=== PATIENT | female | born 1935 | race Caucasian/White ===

== ENCOUNTER → 2017-09-07 | Outpatient (CLI) | payer MEDICARE ==
[~2017-09-07] MED LIST: ALBUPOW26; ARICEPT; AUGMENTIN; BUDESONIDE; DONE5TAB11 PO; DYAZIDE; ERGO1CAP23 PO; IPRATOPIUM; LEVO25TA9; LORAPOW30; PERFOROMIST; PLAVIX; QUE25T PO; TEGRETOL; TOPRO; [UNRECOGNIZED DRUG - OTHER]
[2017-09-07 08:23] LABS: Basophils # (auto) 0.1 uL; Eosinophils # (auto) 0.3 uL; Eosinophils % (auto) 4.9 % (0.0-7.0); Hematocrit 43.5 % (36.0-46.0); Hemoglobin 14.3 g/dL (12.2-16.2); Lymphocytes # (auto) 1.6 uL; Lymphocytes % (auto) 28.3 % (10.0-50.0); Mean Corpuscular Hemoglobin 29.8 pg (28.0-32.0); Mean Corpuscular Volume 90.5 fL (80.0-100.0); Monocytes # (auto) 0.4 uL; Monocytes % (auto) 7.9 % (0.0-12.0); Neutrophils # (auto) 3.2 uL; Neutrophils % (auto) 57.9 % (37.0-80.0); Platelet Count (auto) 227 10^3/uL (140-450); Red Blood Cells 4.81 10^6/uL (4.0-5.20); Red Cell Distribution Width 16.2 % (11.8-14.3); White Blood Cell 5.6 10^3/uL (4.4-10.8)
[2017-09-07 08:35] LABS: Urine Bacteria FEW /hpf (None Seen); Urine Blood Negative /uL (Negative); Urine Mucus FEW (None Seen); Urine Specific Gravity 1.013 (1.001-1.035); Urine WBC 185 /hpf (0 - 5); Urine WBC Clumps PRESENT /hpf (None Seen)
[2017-09-07 08:58] LABS: Free T4 (Free Thyroxine) 1.55 ng/dL (0.89-1.76)
[2017-09-07 09:03] LABS: Albumin 3.9 g/dL (3.4-5.0); BUN/Creatinine Ratio 12.9; Bilirubin, Total 0.5 mg/dL (0.2-1.0); Calcium 9.2 mg/dL (8.5-10.1); Total Protein 8.1 g/dL (6.4-8.2)
== END | disposition home or self-care (01) ==
LOC: LAB 07:34
PROVIDERS: ATTEND Internal Medicine
DX: I10 Essential (primary) hypertension (principal); E55.9 Vitamin D deficiency, unspecified; E03.9 Hypothyroidism, unspecified; E78.00 Pure hypercholesterolemia, unspecified
CPT/HCPCS: 36415; 80053; 80061; 81001; 82043; 82306; 82607; 84439; 84443; 85025; 85652

== ENCOUNTER → 2017-09-11 | Outpatient (CLI) | payer MEDICARE | END | disposition home or self-care (01) | LOC: LAB 12:40 | PROVIDERS: ATTEND Internal Medicine | DX: I12.9 Hypertensive chronic kidney disease with stage 1 through stage 4 chronic kidney disease, or unspecified chronic kidney disease (principal); N18.3 Chronic kidney disease, stage 3 (moderate); R35.0 Frequency of micturition | CPT/HCPCS: 87086; 87088; 87186 ==

== ENCOUNTER → 2019-04-08 | Outpatient (CLI) | payer MEDICARE ==
[2019-04-08 12:25] LABS: Basophils # (auto) 0 uL; Basophils % (auto) 0.6 % (0.0-2.0); Eosinophils # (auto) 0.1 uL; Hematocrit 44.3 % (36.0-46.0); Hemoglobin 14.7 g/dL (12.2-16.2); Lymphocytes # (auto) 1.2 uL; Lymphocytes % (auto) 16.9 % (10.0-50.0); Mean Corpuscular Hemoglobin 30.2 pg (28.0-32.0); Mean Corpuscular Hgb Conc. 33.3 g/dL (32.0-36.0); Mean Corpuscular Volume 90.7 fL (80.0-100.0); Monocytes # (auto) 0.5 uL; Monocytes % (auto) 6.8 % (0.0-12.0); Neutrophils # (auto) 5.3 uL; Neutrophils % (auto) 73.7 % (37.0-80.0); Platelet Count (auto) 237 10^3/uL (140-450); Red Blood Cells 4.88 10^6/uL (4.0-5.20); Red Cell Distribution Width 15.3 % (11.8-14.3); White Blood Cell 7.2 10^3/uL (4.4-10.8)
[2019-04-08 13:35] LABS: Albumin 3.9 g/dL (3.4-5.0); BUN/Creatinine Ratio 12.4; Calcium 9.6 mg/dL (8.5-10.1)
[2019-04-08 13:37] LABS: Bilirubin, Total 0.3 mg/dL (0.2-1.0); Total Protein 7.8 g/dL (6.4-8.2)
[2019-04-08 13:49] LABS: Free T4 (Free Thyroxine) 1.17 ng/dL (0.89-1.76)
== END | disposition home or self-care (01) ==
LOC: LAB 11:35
PROVIDERS: ATTEND Internal Medicine
DX: K80.20 Calculus of gallbladder without cholecystitis without obstruction (principal); F03.90 Unspecified dementia, unspecified severity, without behavioral disturbance, psychotic disturbance, mood disturbance, and anxiety; I10 Essential (primary) hypertension
CPT/HCPCS: 36415; 80053; 82150; 82607; 83690; 84439; 84443; 85025; 85652

== ENCOUNTER → 2020-09-30 | Outpatient (CLI) | payer MEDICARE | END | disposition home or self-care (01) | LOC: LAB 14:26 | PROVIDERS: ATTEND Internal Medicine | DX: R30.0 Dysuria (principal) | CPT/HCPCS: 87086 ==

== ENCOUNTER 2020-10-31 21:10 | Inpatient (IN) | payer MEDICARE ==
[~2020-10-31] VITALS: Ht 157.5 cm; Wt 57.5 kg
[2020-10-31] MEDS ORDERED: SODIUM CHLORIDE 0.9% 1,000 ML IV ONE (22:30)
[2020-10-31] MEDS ORDERED: ONDANSETRON HCL 4 MG/2 ML VIAL IV ONE (22:30)
[2020-10-31 22:46] LABS: Basophils # (auto) 0 10 ^3/uL (0-0.2); Basophils % (auto) 0.5 % (0.0-2.0); Eosinophils # (auto) 0.3 10 ^3/uL (0-0.8); Eosinophils % (auto) 3.5 % (0.0-7.0); Hematocrit 39.6 % (36.0-46.0); Hemoglobin 12.9 g/dL (12.2-16.2); Lymphocytes # (auto) 1.1 10 ^3/uL (0.4-5.4); Lymphocytes % (auto) 13.4 % (10.0-50.0); Mean Corpuscular Hemoglobin 29.5 pg (28.0-32.0); Mean Corpuscular Hgb Conc. 32.5 g/dL (32.0-36.0); Mean Corpuscular Volume 90.8 fL (80.0-100.0); Monocytes # (auto) 0.7 10 ^3/uL (0-1.3); Neutrophils # (auto) 5.9 10 ^3/uL (1.6-8.6); Neutrophils % (auto) 73.6 % (37.0-80.0); Nucleated Red Blood Cells % 0.1 %; Platelet Count (auto) 213 10^3/uL (140-450); Red Blood Cells 4.36 10^6/uL (4.0-5.20); Red Cell Distribution Width 15.6 % (11.8-14.3); White Blood Cell 8.1 10^3/uL (4.4-10.8)
[2020-10-31 23:02] LABS: Albumin 3.4 g/dL (3.4-5.0); Calcium 8.7 mg/dL (8.5-10.1)
[2020-10-31 23:05] LABS: BUN/Creatinine Ratio 21.1; Bilirubin, Total 0.5 mg/dL (0.2-1.0); Total Protein 7.8 g/dL (6.4-8.2)
[2020-10-31] MEDS ORDERED: LABETALOL HCL 5 MG/ML 4ML SYRINGE IV ONE (23:30)
[2020-10-31 23:37] LABS: INR 0.97 (0.9-1.15)
[2020-10-31 23:37] LABS: Urine Bacteria FEW /hpf (None Seen); Urine Blood Negative /uL (Negative); Urine Specific Gravity 1.009 (1.001-1.035); Urine WBC 29 /hpf (0 - 5)
[2020-11-01] MEDS ORDERED: SODIUM CHLORIDE 0.9% 1,000 ML IV SCH (05:15)
[2020-11-01] MEDS ORDERED: ONDANSETRON HCL 4 MG/2 ML VIAL IV PRN (05:15)
[2020-11-01] MEDS ORDERED: NITROGLYCERIN 0.4 MG SL TAB SL PRN (05:15)
[2020-11-01] MEDS ORDERED: ACETAMINOPHEN 325 MG TAB PO PRN (05:15)
[2020-11-01] MEDS: hydrALAZINE HCL 20 MG/ML VL IV PRN (06:09)
[2020-11-01] MEDS: hydrALAZINE HCL 25 MG TAB PO SCH ×3 (06:12→22:08)
[2020-11-01 06:45] LABS: Basophils # (auto) 0.1 10 ^3/uL (0-0.2); Basophils % (auto) 1.1 % (0.0-2.0); Eosinophils # (auto) 0.2 10 ^3/uL (0-0.8); Eosinophils % (auto) 3.4 % (0.0-7.0); Hematocrit 39.3 % (36.0-46.0); Hemoglobin 13.3 g/dL (12.2-16.2); Lymphocytes # (auto) 1.3 10 ^3/uL (0.4-5.4); Lymphocytes % (auto) 17.9 % (10.0-50.0); Mean Corpuscular Hemoglobin 30.1 pg (28.0-32.0); Mean Corpuscular Hgb Conc. 33.9 g/dL (32.0-36.0); Mean Corpuscular Volume 88.9 fL (80.0-100.0); Monocytes # (auto) 0.5 10 ^3/uL (0-1.3); Monocytes % (auto) 6.7 % (0.0-12.0); Neutrophils # (auto) 5.1 10 ^3/uL (1.6-8.6); Neutrophils % (auto) 70.9 % (37.0-80.0); Nucleated Red Blood Cells % 0.1 %; Platelet Count (auto) 233 10^3/uL (140-450); Red Blood Cells 4.42 10^6/uL (4.0-5.20); Red Cell Distribution Width 15.3 % (11.8-14.3); White Blood Cell 7.2 10^3/uL (4.4-10.8)
[2020-11-01 07:02] LABS: Albumin 3.2 g/dL (3.4-5.0); Calcium 8.3 mg/dL (8.5-10.1)
[2020-11-01 07:05] LABS: BUN/Creatinine Ratio 18.1; Bilirubin, Total 0.3 mg/dL (0.2-1.0); Total Protein 7.2 g/dL (6.4-8.2)
[2020-11-01 09:29] VITALS: BP 129/68
[2020-11-01] MEDS: LEVOTHYROXINE SODIUM 25 MCG TAB PO SCH (10:23)
[2020-11-01] MEDS: amLODIPine BESYLATE 5 MG TAB PO SCH (10:24)
[2020-11-01] MEDS: cefTRIAXone 1GM/50ML D5W 50 ML IV SCH (10:24)
[2020-11-01] MEDS: PANTOPRAZOLE 40 MG/10 ML VIAL INJ IV SCH (10:24)
[2020-11-01 10:40] VITALS: BP 124/68
[2020-11-01] MEDS ORDERED: LEVO88CA3 PO (11:08)
[2020-11-01] MEDS ORDERED: DOCU100T15 PO (11:14)
[2020-11-01] MEDS ORDERED: EZET10TA22 PO (11:14)
[2020-11-01] MEDS ORDERED: AMLO-489 PO (11:14)
[2020-11-01] MEDS ORDERED: ACET-1158 PO (11:14)
[2020-11-01] MEDS ORDERED: MEMA1TAB5 PO (11:14)
[2020-11-01] MEDS ORDERED: MULT-192 PO (11:14)
[2020-11-01] MEDS ORDERED: [UNRECOGNIZED DRUG - CODE] OR (11:14)
[2020-11-01] MEDS ORDERED: CLOP75TA70 PO (11:14)
[2020-11-01 13:00] VITALS: BP 141/81
[2020-11-01 16:34] VITALS: BP 136/79
[2020-11-01 22:00] VITALS: BP 133/81
[2020-11-01] MEDS: DONEPEZIL HYDROCHLORIDE 5 MG TAB PO SCH (22:07)
[2020-11-02 05:00] VITALS: BP 167/93
[2020-11-02] MEDS: hydrALAZINE HCL 25 MG TAB PO SCH ×3 (05:59→22:30)
[2020-11-02] MEDS: LEVOTHYROXINE SODIUM 25 MCG TAB PO SCH (05:59)
[2020-11-02 09:00] VITALS: BP 159/91
[2020-11-02] MEDS: cefTRIAXone 1GM/50ML D5W 50 ML IV SCH (09:00)
[2020-11-02] MEDS: amLODIPine BESYLATE 5 MG TAB PO SCH (10:00)
[2020-11-02] MEDS: PANTOPRAZOLE 40 MG/10 ML VIAL INJ IV SCH (10:00)
[2020-11-02] MEDS ORDERED: CLOPIDOGREL BISULFATE 75 MG TAB PO ONE (11:15)
[2020-11-02] MEDS: SODIUM CHLORIDE 0.9% 1,000 ML IV SCH ×2 (11:45→19:30)
[2020-11-02 12:09] LABS: Basophils # (auto) 0.1 10 ^3/uL (0-0.2); Basophils % (auto) 1.1 % (0.0-2.0); Eosinophils # (auto) 0.1 10 ^3/uL (0-0.8); Eosinophils % (auto) 1.7 % (0.0-7.0); Hematocrit 38.3 % (36.0-46.0); Hemoglobin 13.1 g/dL (12.2-16.2); Lymphocytes # (auto) 1.4 10 ^3/uL (0.4-5.4); Lymphocytes % (auto) 20.7 % (10.0-50.0); Mean Corpuscular Hemoglobin 30.1 pg (28.0-32.0); Mean Corpuscular Hgb Conc. 34.1 g/dL (32.0-36.0); Mean Corpuscular Volume 88.5 fL (80.0-100.0); Monocytes # (auto) 0.5 10 ^3/uL (0-1.3); Monocytes % (auto) 7.3 % (0.0-12.0); Neutrophils # (auto) 4.8 10 ^3/uL (1.6-8.6); Neutrophils % (auto) 69.2 % (37.0-80.0); Nucleated Red Blood Cells % 0.1 %; Platelet Count (auto) 249 10^3/uL (140-450); Red Blood Cells 4.33 10^6/uL (4.0-5.20); Red Cell Distribution Width 15.6 % (11.8-14.3); White Blood Cell 6.9 10^3/uL (4.4-10.8)
[2020-11-02 12:27] LABS: Albumin 3.3 g/dL (3.4-5.0); Calcium 8.6 mg/dL (8.5-10.1); Potassium 3.8 mmol/L (3.5-5.1)
[2020-11-02 12:32] LABS: BUN/Creatinine Ratio 20.7; Bilirubin, Total 0.5 mg/dL (0.2-1.0); Total Protein 7.3 g/dL (6.4-8.2)
[2020-11-02 13:00] VITALS: BP 153/92
[2020-11-02] MEDS: hydrALAZINE HCL 20 MG/ML VL IV PRN (15:18)
[2020-11-02 17:00] VITALS: BP 168/87
[2020-11-02 22:00] VITALS: BP 149/70
[2020-11-02] MEDS: QUEtiapine FUMARATE 25 MG TAB PO SCH (22:30)
[2020-11-02] MEDS: DONEPEZIL HYDROCHLORIDE 5 MG TAB PO SCH (22:30)
[2020-11-03] MEDS: SODIUM CHLORIDE 0.9% 1,000 ML IV SCH ×3 (01:05→14:25)
[2020-11-03 05:00] VITALS: BP 137/83
[2020-11-03] MEDS: hydrALAZINE HCL 25 MG TAB PO SCH ×2 (06:45→14:00)
[2020-11-03] MEDS: LEVOTHYROXINE SODIUM 25 MCG TAB PO SCH (07:11)
[2020-11-03] MEDS: cefTRIAXone 1GM/50ML D5W 50 ML IV SCH (09:00)
[2020-11-03] MEDS ORDERED: MEMANTINE HCL 5 MG TAB PO SCH (10:00)
[2020-11-03] MEDS: PANTOPRAZOLE 40 MG/10 ML VIAL INJ IV SCH (10:00)
[2020-11-03] MEDS ORDERED: CLOPIDOGREL BISULFATE 75 MG TAB PO SCH (10:00)
[2020-11-03] MEDS: QUEtiapine FUMARATE 25 MG TAB PO SCH (10:37)
[2020-11-03] MEDS: amLODIPine BESYLATE 5 MG TAB PO SCH (10:37)
[2020-11-03 13:50] VITALS: BP 160/89
== END 2020-11-03 16:24 | disposition hospice, home (50) | DRG 378 ==
LOC: ER 21:10 → EDBD 21:10 → TELE-EAST 11-01 05:10 → TELE-WESTW 11-01 13:01
PROVIDERS: ADMIT Nurse Practitioner Family; ATTEND Family Medicine
DX: K92.0 Hematemesis (principal); N39.0 Urinary tract infection, site not specified; Z20.822 Contact with and (suspected) exposure to COVID-19; R54 Age-related physical debility; Z51.5 Encounter for palliative care; Z96.643 Presence of artificial hip joint, bilateral; K80.70 Calculus of gallbladder and bile duct without cholecystitis without obstruction; F02.80 Dementia in other diseases classified elsewhere, unspecified severity, without behavioral disturbance, psychotic disturbance, mood disturbance, and anxiety; K59.00 Constipation, unspecified; K44.9 Diaphragmatic hernia without obstruction or gangrene; E86.0 Dehydration; G30.9 Alzheimer's disease, unspecified; F41.9 Anxiety disorder, unspecified; I25.10 Atherosclerotic heart disease of native coronary artery without angina pectoris; F32.9 Major depressive disorder, single episode, unspecified; J44.9 Chronic obstructive pulmonary disease, unspecified; E03.9 Hypothyroidism, unspecified; I11.9 Hypertensive heart disease without heart failure; Z86.73 Personal history of transient ischemic attack (TIA), and cerebral infarction without residual deficits; Z88.5 Allergy status to narcotic agent; Z88.8 Allergy status to other drugs, medicaments and biological substances; Z79.899 Other long term (current) drug therapy; Z82.49 Family history of ischemic heart disease and other diseases of the circulatory system
CPT/HCPCS: 36415; 74176; 80053; 81001; 83690; 84443; 85025; 85610; 86850; 86900; 86901; 87081; 87426; 96361; 96374; 96375; C9113; G0378; J0696; J2405; J3490